=== PATIENT | male | born 1950 | race Caucasian/White ===

== ENCOUNTER → 2019-11-24 19:18 | Outpatient (ROUT) | payer MEDICARE, OTHER, SELFPAY ==
[2019-11-24 19:39] LABS: Add Manual Diff / Slide Review NO; Basophils Absolute Auto 0 /uL (0-100); Basophils Percent Auto 0.6 % (0-2); Eosinophils Absolute Auto 300 /uL (0-450); Eosinophils Percent Auto 5.4 % (2-4); Hematocrit 43.7 % (41-53); Hemoglobin 14.5 g/dL (13.5-17.5); Lymphocytes Absolute Auto 1100 /uL (1100-4500); Lymphocytes Percent Auto 19.2 % (25-40); Mean Corpuscular HGB Conc 33.2 % (30-36); Mean Corpuscular Hemoglobin 29.6 PG (26-34); Mean Corpuscular Volume 89.2 fL (80-100); Monocytes Absolute Auto 600 /uL (0-900); Monocytes Percent Auto 10.9 % (3-14); Neutrophils Absolute Auto 3700 /uL (1500-7000); Neutrophils Percent Auto 63.9 % (50-75); Platelet Count 173 X10^3/uL (150-400); Red Cell Distribution Width 13.9 % (11.6-14.8); White Blood Cell Count 5.7 X10^3/uL (4.5-11.0)
[2019-11-24 19:46] LABS: HEMOLYSIS 20 (0-50)
[2019-11-24 19:52] LABS: Alanine Aminotransferase 25 IU/L (<50); Albumin Globulin Ratio 1.5 (1.0-2.8); Alkaline Phosphatase 74 U/L (38-126); Aspartate Aminotransferase 32 IU/L (17-59); BUN Creatinine Ratio 17.3 (6-22); Bilirubin Total 0.6 mg/dL (0.2-1.3); Blood Urea Nitrogen 18 mg/dL (9-20); Calcium 9.6 mg/dL (8.4-10.2); Carbon Dioxide 25 mmol/L (22-32); Chloride 104 mmol/L (98-107); Cholesterol 204 mg/dL (140-199); Estimated Glomerular Filt Rate > 60.0 mL/min (>60); Globulin 2.7 g/dL (1.7-4.1); Glucose 102 mg/dL (80-110); HDL Cholesterol 36 mg/dL (40-60); LDL Cholesterol Calculated 131 mg/dL (<100); Sodium 138 mmol/L (137-145); Total Protein 6.7 g/dL (6.3-8.2); Triglycerides 187 mg/dL (35-150)
[2019-11-24 20:20] LABS: TSH w/ Reflex to FT4 2.04 uIU/mL (0.47-4.68)
== END ==
PROVIDERS: Family Provider Physician Assistant; PCP Physician Assistant; Visit Provider Internal Medicine
DX: Z85.46 Personal history of malignant neoplasm of prostate (principal); E78.2 Mixed hyperlipidemia; R53.83 Other fatigue
CPT/HCPCS: 80053; 80061; 84153; 84443; 85025

== ENCOUNTER → 2019-11-26 12:49 | Outpatient (CLI) | payer MEDICARE, OTHER, SELFPAY ==
--- NOTE | 2019-11-26 12:51 | DI.US.S_ITS ---
PROCEDURE: US ABD AORTA ANEURYSM SCREEN INDICATIONS: Abdominal Aortic aneurysm TECHNIQUE: Real time scanning was performed of the aorta and iliac arteries, with image documentation. COMPARISON: [facility], , RENAL OR RETROPERITONEAL LIMIT, 02/18/2016, 11:26. FINDINGS: Aorta: Proximal aorta is not seen. Mid-aorta measures 2.8 cm. Distal aortic diameter is 2.8 cm. Mural thrombus is seen within the mid and distal aorta. Iliac arteries: Right common iliac artery measures 1.5 cm. Left common iliac artery measures 1.5 cm. This study is limited by body habitus. Study is further limited by bowel gas. IMPRESSION: On these limited images, no abdominal aortic aneurysm is seen. It is noted that on the prior examination, a 3.5 cm aneurysm was seen involving the proximal aorta. This area is not seen on the current study, secondary to body habitus and overlying bowel gas. Dictated by: Samuel Pearl M.D. on 11/26/2019 at 14:27 Approved by: Samuel Pearl M.D. on 11/26/2019 at 14:28
== END ==
PROVIDERS: Family Provider Physician Assistant; PCP Physician Assistant; Referring Provider Internal Medicine; Visit Provider Internal Medicine
DX: I71.4 Abdominal aortic aneurysm, without rupture (principal)
CPT/HCPCS: 76706

== ENCOUNTER → 2019-12-22 09:42 | Outpatient (CLI) | payer MEDICARE, OTHER, SELFPAY ==
--- NOTE | 2019-12-22 09:53 | DI.CT.S_ITS ---
PROCEDURE: CT KIDNEY URETER BLADDER (KUB) INDICATIONS: Abdominal aortic aneurysm, without rupture TECHNIQUE: Noncontrast 5 mm thick sections acquired from the diaphragms to the symphysis. 5 mm thick coronal and sagittal reformats were then performed. For radiation dose reduction, the following was used: automated exposure control, adjustment of mA and/or kV according to patient size. COMPARISON: [facility], , US ABD AORTA ANEURYSM SCREEN, 11/26/2019, 13:10. [facility], , RENAL OR RETROPERITONEAL LIMIT, 02/18/2016, 11:26. FINDINGS: Image quality: Excellent. Lung bases: Lung bases are clear. No pleural effusion. Heart size is normal. Coronary artery calcifications. Gastric band. Urinary system: Both kidneys are within normal limits in size. Polycystic kidneys. Small hyperdense cyst in both kidneys. Left kidney superior pole rim calcified cyst. Left kidney is superior pole cortical thinning. Right kidney peripelvic cyst. No kidney stones. No hydronephrosis or perinephric fat stranding. Both ureters appear non-dilated throughout their expected courses. Bladder is unremarkable; no calcified bladder stones. Other solid organs: Liver is normal in size. A few well circumscribed hepatic hypodensities which consistent with benign cysts or hemangiomas. Gallbladder is unremarkable. Pancreas is normal in contours. Spleen is normal in size. No adrenal nodules. Peritoneum and bowel: Unenhanced bowel loops demonstrate normal wall thickness and caliber. Diverticulosis. No free fluid or air. Nodes and vessels: No retroperitoneal or mesenteric adenopathy by size criteria. Descending thoracic aorta measures 3.2 cm, (5/57). Proximal abdominal aorta measures 3.2 cm, (5/52). Mid abdominal aorta measures 2.5 cm. Distal abdominal aorta measures 2.3 cm. No iliac artery aneurysm. Abdominal wall: Small fat containing periumbilical hernia. Pelvis: No free pelvic fluid. No inguinal hernias or adenopathy. Prostate brachytherapy seeds. Bones: No suspicious bony lesions. Right hip total arthroplasty. No vertebral body compression fractures. IMPRESSION: 1. The descending thoracic aorta and proximal abdominal aorta measure 3.2 cm and are mildly aneurysmal. 2. Polycystic kidneys. Mildly complex left renal cyst. Scarring at the superior pole the left kidney. -recommend correlation with renal function. -recommend follow-up renal ultrasound or follow-up CT/MRI for mildly complex renal cyst. Additional findings: Gastric band. Prostate brachytherapy seeds. Right hip arthroplasty. Dictated by: Jorge Jacobo M.D. on 12/22/2019 at 10:04 Approved by: Jorge Jacobo M.D. on 12/22/2019 at 10:29
== END ==
PROVIDERS: Family Provider Physician Assistant; PCP Internal Medicine; Referring Provider Internal Medicine; Visit Provider Internal Medicine
DX: I71.4 Abdominal aortic aneurysm, without rupture (principal); N28.1 Cyst of kidney, acquired; G47.33 Obstructive sleep apnea (adult) (pediatric)
CPT/HCPCS: 74176; 99213; Q9967

== ENCOUNTER → 2019-12-25 15:30 | Outpatient (CLI) | payer MEDICARE, OTHER, SELFPAY ==
--- NOTE | 2019-12-25 | DI.US.S_ITS ---
PROCEDURE: US RENAL COMPLETE INDICATIONS: POLICYSTIC KIDNEY UNSPECIFIED TECHNIQUE: Real-time scanning was performed of the kidneys and bladder, with image documentation. COMPARISON: [facility], US, RENAL OR RETROPERITONEAL LIMIT, 02/18/2016, 11:26. [facility], CT, CT KIDNEY URETER BLADDER (KUB), 12/22/2019, 9:47. FINDINGS: Kidneys: Kidneys are normal in size. Right kidney measures from 12.5 cm long; left kidney measures 11.4 cm long. Right renal cortical thickness is 2.2 cm; left renal cortical thickness is 2.1 cm. Renal cortical echotexture is normal. No hydronephrosis or nephrolithiasis. No suspicious solid mass lesions. Bilateral renal cyst redemonstrated largest of which on the right measures up to 5.8 cm and 5.7 cm on the left. Bladder: Pre-void bladder volume is 189 mL. Post-void residual is 51 mL. Pre-void images demonstrate no intraluminal masses or stones. On pre-void images, neither ureteral jets are noted with color Doppler interrogation. (Of note, ureteral jets may not be detectable in up to 25% of cases due to insufficient differences in specific gravity between ureteral and bladder urine). Miscellaneous: No free pelvic fluid. IMPRESSION: Bilateral renal cyst which appears similar to prior CT scan. Dictated by: Goran MINOR Interpreted: Jonny Garcia MD on 12/25/2019 at 16:29 Approved by: Jonny Garcia M.D. on 12/25/2019 at 16:34
== END ==
PROVIDERS: Family Provider Physician Assistant; PCP Internal Medicine; Referring Provider Internal Medicine; Visit Provider Internal Medicine
DX: Q61.3 Polycystic kidney, unspecified (principal)
CPT/HCPCS: 76770

== ENCOUNTER → 2020-12-29 10:01 | Outpatient (CLI) | payer MEDICARE, OTHER, SELFPAY ==
--- NOTE | 2020-12-29 10:05 | DI.CT.S_ITS ---
PROCEDURE: CT ABDOMEN PELVIS W CON INDICATIONS: AAA WITHOUT RUPTURE TECHNIQUE: After the administration of oral and IV contrast, axial sections were acquired from the lung bases to the pubic symphysis. Coronal and sagittal reformats were performed. For radiation dose reduction, the following was used: automated exposure control, adjustment of mA and/or kV according to patient size. COMPARISON: December 22, 2019. FINDINGS: Image quality: Excellent. Lung bases: Unremarkable. Heart: No significant findings. ABDOMEN: Liver: Decreased attenuation liver, compatible hepatic steatosis. Scattered hypoattenuating lesions are seen, measuring up to 1.3 cm, which may reflect cysts. Gallbladder: Unremarkable. Biliary ducts: Unremarkable. Pancreas: Unremarkable. Spleen: Unremarkable. Adrenal Glands: Unremarkable. Kidneys and Ureters: Symmetric enhancement without evidence of obstructive uropathy. Bilateral cortical hypo and isoattenuating lesions are seen, most consistent with cysts. Stomach and Bowel: Small hiatal hernia with lap band in situ. No intestinal obstruction. Sigmoid diverticulosis. The appendix is not clearly identified. Peritoneum: No abnormal intraperitoneal fluid. No free air. Ventral Wall: Small fat containing periumbilical hernia. Abdominal Nodes: No retroperitoneal or mesenteric adenopathy by size criteria. Vessels: Aorta and inferior vena cava are normal in size. PELVIS: Pelvic Organs: Brachy therapy seeds are seen in the prostate. Bladder: Unremarkable. Pelvic Nodes: No enlarged lymph nodes. Miscellaneous: Small fat containing left inguinal hernia. Fatty atrophy of the right gluteus medius. Bones: No acute abnormality. Moderate disc height loss at L5-S1 with calcification of the disc. A right hip arthroplasty is partially imaged. IMPRESSION: 1. No acute intra-abdominal/pelvic abnormality. 2. Polycystic kidneys, some demonstrating greater attenuation values than simple fluid and most consistent with Bosniak [address] F lesions. Consider annual CT or MR follow-up for 5 years to ensure stability. Dictated by: Jer Salinas M.D. on 12/29/2020 at 11:39 Approved by: Jer Salinas M.D. on 12/29/2020 at 12:06
[2020-12-29 10:36] LABS: BUN Creatinine Ratio 16.7 (6-22); Blood Urea Nitrogen 17 mg/dL (9-20); Calcium 9.7 mg/dL (8.4-10.2); Carbon Dioxide 25 mmol/L (22-32); Chloride 106 mmol/L (98-107); Estimated Glomerular Filt Rate > 60.0 mL/min (>60); Glucose 104 mg/dL (80-110); HEMOLYSIS < 15 (0-50); Potassium 4.1 mmol/L (3.4-5.1); Sodium 139 mmol/L (137-145)
== END ==
PROVIDERS: Family Provider Physician Assistant; PCP Internal Medicine; Referring Provider Internal Medicine; Visit Provider Internal Medicine
DX: I71.4 Abdominal aortic aneurysm, without rupture (principal); N28.1 Cyst of kidney, acquired; K44.9 Diaphragmatic hernia without obstruction or gangrene; K40.90 Unilateral inguinal hernia, without obstruction or gangrene, not specified as recurrent; Z98.84 Bariatric surgery status
CPT/HCPCS: 36415; 74177; 80048; Q9967

== ENCOUNTER → 2021-04-20 14:31 | Outpatient (CLI) | payer MEDICARE, OTHER, SELFPAY ==
--- NOTE | 2021-04-20 | DI.ECHO.S_ITS ---
[facility] +[facility]+ : : [address] : [place] : : : : [id number] : : : : Phone: [phone]+ Echocardiogram Report + + :Name: NICANOR RANGEL Study Date: 04/20/2021 Height: 75 in : :[facility] ReadingLocation: Weight: 325 lb : : Gender: Male BSA: 2.7 m2 : :: 1950 Age: 70 yrs BP: 155/100 mmHg: :Reason For Study: EDEMA : :Ordering Physician: IJEOMA, : :JEFFERY Performed By: Carol Zee : :Referring: JEFFERY RAPHAEL : + + Interpretation Summary 1) Normal left ventricular size, wall motion, and systolic function (EF 55- 60%). 2) Normal right ventricular size and function. 3) There is mild to moderate very eccentric mitral regurgitation. 4) The aortic root is moderately dilated at 4.5cm. 5) The ascending aorta is moderate-severely enlarged at 4.7cm. 6) Hypertension present during the study (BP 155/100mmHg). 7) No prior Echo available for comparison. Recommend further optimization of BP control. Recommend repeat Echo in one year for serial monitoring (earlier if clinically indicated). Procedure: A two-dimensional transthoracic echocardiogram with color flow and Doppler was performed. The study quality was technically difficult. There is no prior echocardiogram noted for this patient. The patient was in sinus bradycardia with heart rates between 48-58 bpm during the exam. Left Ventricle: The left ventricle is normal in size. Left ventricular wall thickness is at the upper limits of normal. The ejection fraction is estimated to be 55-60%. Left ventricular systolic function appears normal without focal wall motion abnormalities. Diastolic parameters suggest a pseudonormalization pattern, consistent with probable elevated filling pressures. Right Ventricle: The right ventricle is normal in size and function. Atria: The left atrium is moderately dilated. Right atrial size is normal. There is no Doppler evidence for an interatrial shunt. Mitral Valve: The mitral valve is normal in structure and function. There is mild to moderate mitral regurgitation. The mitral regurgitant jet is eccentrically directed. Aortic Valve: The aortic valve is trileaflet. The aortic valve opens well. There is no aortic valve stenosis. There is trace aortic regurgitation. Tricuspid Valve: The tricuspid valve is normal in structure and function. There is trace tricuspid regurgitation. Pulmonary artery pressures cannot be estimated because of the lack of a measurable TR jet velocity but the IVC suggests a CVP of around 3 mmHg. Pulmonic Valve: The pulmonic valve is not well visualized. There is trace pulmonic regurgitation. Great Vessels: The aortic root is moderately dilated. The ascending aorta is moderate-severely enlarged. The IVC is of normal diameter and collapses greater than 50% with a sniff. This suggests a low right atrial pressure of 3 mm Hg. Pericardium/ Pleura There is no pericardial effusion. There is no pleural effusion. MMode/2D Measurements & Calculations LVIDd: 5.1 cm LVOT diam: 2.4 cm LVIDs: 3.3 cm Ao root diam: 4.5 cm FS: 36.0 % asc Aorta Diam: 4.7 cm IVSd: 1.1 cm Ao Arch Diam (Prox Trans): 3.9 cm LVPWd: 1.0 cm LV zaragoza. diameter/BSA (cm/m^2): 1.9 LV sys. diameter/BSA (cm/m^2): 1.2 LA A2 area: 28.2 cm2 RA long axis: 5.6 cm LA A4 area: 22.4 cm2 RA area: 15.2 cm2 LA length (vol): 5.6 cm RA vol: 35.3 ml LA vol: 95.4 ml RA : 13.1 ml/m2 LA vol index: 35.4 ml/m2 IVC diam: 1.1 cm RVD1 (basal): 3.7 cm TAPSE: 1.8 cm Doppler Measurements & Calculations Ao V2 max: 129.1 cm/sec LVOT Max Russell: 93.8 cm/sec Ao V2 mean: 83.2 cm/sec LV V1 max P.5 mmHg Ao max P.7 mmHg LV V1 VTI: 21.3 cm Ao mean P.3 mmHg TANG(I,D): 3.3 cm2 Ao V2 VTI: 28.8 cm TANG(V,D): 3.3 cm2 sev ratio: 0.74 TANG indexed to BSA (cm^2/m^2): 1.2 MV E max russell: 100.6 cm/sec PA V2 max: 89.8 cm/sec MV A max russell: 59.6 cm/sec PA V2 mean: 65.1 cm/sec MV E/A: 1.7 PA mean P.8 mmHg Med Peak E' Russell: 5.9 cm/sec PA pr(Accel): 31.0 mmHg E/E' med: 17.2 Lat Peak E' Russell: 9.9 cm/sec E/E' lat: 10.2 E/e' average: 13.7 MV dec time: 0.25 sec SV(LVOT): 95.5 ml Reading Physician:04:31 PM
== END ==
PROVIDERS: Family Provider Physician Assistant; PCP Student in an Organized Health Care Education/Training Program; Referring Provider Student in an Organized Health Care Education/Training Program; Visit Provider Student in an Organized Health Care Education/Training Program
DX: I34.0 Nonrheumatic mitral (valve) insufficiency (principal); R60.9 Edema, unspecified; I77.810 Thoracic aortic ectasia; I77.89 Other specified disorders of arteries and arterioles
CPT/HCPCS: 93306

== ENCOUNTER → 2021-08-24 09:47 | Outpatient (CLI) | payer MEDICARE, OTHER, SELFPAY ==
--- NOTE | 2021-08-24 09:56 | DI.CT.S_ITS ---
PROCEDURE: CT ANGIO CHEST INDICATIONS: Thoracic aortic aneurysm, without rupture TECHNIQUE: After the administration of intravenous contrast, 2.5 mm thick sections acquired from the lung apices to the posterior lung bases. Maximum intensity projection (MIP) oblique sagittal reformats were then acquired parallel to the aortic arch. For radiation dose reduction, the following was used: automated exposure control. COMPARISON: None. FINDINGS: Image quality: Excellent. Aorta and its attachments: There is aneurysmal dilatation of the ascending aorta, which measures 4.8 cm in diameter. The transverse arch is normal in caliber. The proximal descending thoracic aorta is mildly aneurysmally dilated, measuring 3.7 cm. More inferiorly, the descending thoracic aorta is of normal caliber. Classic three-vessel arch anatomy. Great vessel origins are widely patent. Celiac, SMA, and bilateral renal arteries are patent. Mediastinum: No hematomas. Heart size is normal. No pericardial effusion. Moderately severe coronary artery calcifications. No mediastinal or hilar adenopathy by size criteria. Central pulmonary arteries are normal in size. Esophagus is normal in caliber. No hiatal hernia. Lungs and pleura: No acute airspace opacities. No pleural effusions or pneumothorax. Central and peripheral airways are patent and normal in caliber. Bones and chest wall: No axillary adenopathy by size criteria. Thyroid gland is unremarkable as visualized . No suspicious bony lesions. No vertebral body compression fractures. Abdomen: Question exophytic mass off the posterior aspect of the middle pole of the left kidney measuring 2.7 x 2.5 cm. It is subjacent to an exophytic cyst. Cannot exclude renal cell carcinoma. Numerous other bilateral renal cysts are present. This includes a hyperdense cyst or small mass off of the upper pole of the right kidney measuring 1.5 cm. Laparoscopic band noted. IMPRESSION: 1. Aneurysmal dilatation of the ascending aorta, measuring 4.8 cm in diameter. Mild aneurysmal dilatation of the proximal descending thoracic aorta. 2. Moderately severe coronary artery calcifications. 3. Question 2.7 cm maximum diameter exophytic left renal mass. Question 1.5 cm right renal mass. Comment: Recommend further evaluation of the kidneys utilizing multiphase renal protocol CT versus MRI to exclude solid renal masses. Dictated by: Ruslan Perry M.D. on 08/24/2021 at 16:18 Approved by: Ruslan Perry M.D. on 08/24/2021 at 16:53
[2021-08-24 10:32] LABS: BUN Creatinine Ratio 15.5 (6-22); Blood Urea Nitrogen 17 mg/dL (9-20); Calcium 9.7 mg/dL (8.4-10.2); Carbon Dioxide 26 mmol/L (22-32); Chloride 106 mmol/L (98-107); Estimated Glomerular Filt Rate > 60 mL/min (>60); Glucose 130 mg/dL (80-110); HEMOLYSIS < 15 (0-50); Potassium 3.7 mmol/L (3.4-5.1); Sodium 139 mmol/L (137-145)
== END ==
PROVIDERS: Family Provider Physician Assistant; PCP Student in an Organized Health Care Education/Training Program; Referring Provider Internal Medicine Cardiovascular Disease; Visit Provider Internal Medicine Cardiovascular Disease
DX: I71.2 Thoracic aortic aneurysm, without rupture (principal); I25.10 Atherosclerotic heart disease of native coronary artery without angina pectoris; N28.89 Other specified disorders of kidney and ureter
CPT/HCPCS: 36415; 71275; 80048; Q9967

== ENCOUNTER → 2022-03-15 10:12 | Outpatient (CLI) | payer MEDICARE, OTHER, SELFPAY ==
--- NOTE | 2022-03-15 10:15 | DI.CT.S_ITS ---
PROCEDURE: CT ANGIO CHEST INDICATIONS: Aneurysm of the ascending aorta, without rupture TECHNIQUE: After the administration of intravenous contrast, 2.5 mm thick sections acquired from the lung apices to the posterior lung bases. Maximum intensity projection (MIP) oblique sagittal reformats were then acquired parallel to the aortic arch. For radiation dose reduction, the following was used: automated exposure control. COMPARISON: [facility], MR, MR ABDOMEN WITH/WITHOUT CONTRAST, 11/10/2021, 9:49. [facility], CT, CT ANGIO CHEST, 08/24/2021, 11:05. FINDINGS: Image quality: Excellent. Aorta: There is ectasia of the ascending thoracic aorta which measures 4.6 cm in diameter. This measured 4.8 cm in diameter on the comparison CT dated August 24, 2021. The thoracic arch and descending thoracic aorta demonstrate normal course and caliber. Visualized portions of the abdominal aorta demonstrate normal course and caliber. The celiac axis, SMA, and bilateral E renal arteries are widely patent. No intramural hematoma is or wall thickening. Mediastinum: No hematomas. Heart size is normal. No pericardial effusion. No mediastinal or hilar adenopathy by size criteria. Central pulmonary arteries are normal in size. Esophagus is normal in caliber. There is a small hiatal hernia and lap band present. Lungs and pleura: No acute airspace opacities. No pleural effusions or pneumothorax. Central and peripheral airways are patent and normal in caliber. Bones and chest wall: No axillary adenopathy by size criteria. There is a low-density nodule within the left thyroid lobe likely unchanged from the prior study. No suspicious bony lesions. No vertebral body compression fractures. Abdomen: Multiple exophytic lesions are redemonstrated throughout the bilateral kidneys. These were characterized on the comparison MRI dated November 10, 2021Visualized upper abdominal solid organs and bowel loops appear otherwise normal. IMPRESSION: 1. Stable ectasia of the ascending thoracic aorta. Annual surveillance recommended. This can likely be accomplished by echocardiography. 2. Multiple exophytic renal cystic lesions which were recently characterized on the comparison MRI dated November 10, 2021. Dictated by: Fidelia Middletno M.D. on 03/15/2022 at 11:34 Approved by: Fidelia Middleton M.D. on 03/15/2022 at 11:42
[2022-03-15 11:03] LABS: Estimated Glomerular Filt Rate > 60 mL/min (>60)
== END ==
PROVIDERS: Radiology Diagnostic Radiology; Family Provider Physician Assistant; PCP Student in an Organized Health Care Education/Training Program; Referring Provider Nurse Practitioner Family; Visit Provider Nurse Practitioner Family
DX: I77.810 Thoracic aortic ectasia (principal); N28.89 Other specified disorders of kidney and ureter
CPT/HCPCS: 36415; 71275; 82565; Q9967

== ENCOUNTER 2022-10-29 15:13 | Emergency (ER) | payer MEDICARE, OTHER, SELFPAY ==
[2022-10-29 15:20] VITALS: BP 139/95; PULSE 82; RESP 16; TEMP 36.9; O2SAT 95; BMI 41.2
--- NOTE | 2022-10-29 15:55 | PC.NURSE ---
History or prostate cancer.
--- NOTE | 2022-10-29 15:59 | ED_ITS ---
HPI - Male Genitourinary <Amee Soto PA-C - Last Filed: 10/29/22 17:59> General Chief complaint: Urogenital-Male Stated complaint: Blood in urine Time Seen by Provider: 10/29/22 15:35 Source: patient Mode of arrival: Ambulatory History of Present Illness HPI Narrative: Patient is a 72-year-old male who presents with concern for blood in his urine since this morning. He reports waking up and having normal urination, drinking a cup of coffee and then returning to the bathroom where he noticed his urine was pink tinged. This has progressively gotten darker throughout the day. It is not painful to urinate and he is not having any difficulty initiating his stream. He has not had any recent trauma or injury. He reports a history of prostate cancer for which she received radiation, his follow-up PSAs have been undetectable until this year when it was 0.4. This has never happened to him before. He is never had any problems with his kidneys or a kidney stone. He has no abdominal pain, or flank pain. He denies fever. He does reports an episode 4 days ago where he had acute onset of stomach pain, and cramping and felt like he needed to either vomit or have diarrhea, but neither occurred. He fell asleep, awoke several hours later and the pain was gone. He is had normal bowel movements have been able to tolerate food since then. He takes Xarelto, which is prescribed by his psychosocial rehabilitation counselor, but he does not know the reason that he is taking it. He is also taking Ozempic for weight loss, since June. Related Data Home Medications Medication Instructions Recorded Confirmed lisinopril 20 1 tab PO DAILY 12/12/17 01/17/22 mg-hydrochlorothiazide 25 mg tablet Resmed Airsense 10 CPAP #1 ea 12/10/18 01/17/22 aspirin 81 mg tablet,delayed 81 mg PO DAILY 12/10/18 01/17/22 release (Adult Low Dose Aspirin) losartan 50 mg-hydrochlorothiazide 1 tab PO DAILY 12/17/20 01/17/22 12.5 mg tablet rosuvastatin 10 mg tablet 10 mg PO DAILY 12/17/20 01/17/22 Previous Rx's Medication Instructions Recorded levofloxacin 250 mg tablet 250 mg PO DAILY #4 tabs 10/29/22 Allergies Allergy/AdvReac Type Severity Reaction Status Date / Time No Known Drug Allergies Allergy Unverified 01/17/22 11:44 Review of Systems <Amee Soto PA-C - Last Filed: 10/29/22 17:59> Review of Systems ROS Unobtainable: All systems reviewed & are unremarkable except as noted in HPI and below Patient History <Amee Soto PA-C - Last Filed: 10/29/22 17:59> Medical History Allergic rhinitis Depression Hearing deficit Hypertension Obesity (BMI 30-39.9) Obstructive sleep apnea of adult Prostate cancer Surgical History History of right hip replacement (~2015) Hx of laparoscopic gastric banding (~2014) Social History Smoking Status: Never smoker Smoking Status: Never smoker Exam <Amee Soto PA-C - Last Filed: 10/29/22 17:59> Narrative Exam Narrative: GENERAL: 72 year old patient appears stated age. Well-developed patient, in no distress. NEURO: AOx3. HEAD: Atraumatic. Normocephalic. RESPIRATORY: No distress GASTROINTESTINAL: Abdomen soft, non-tender, nondistended. No suprapubic tenderness or CVA tenderness. EXTREMITIES: No edema or joint tenderness. SKIN: No rash or erythema of visible areas Initial Vital Signs Initial Vital Signs: Vital Signs Temperature 98.4 F 10/29/22 15:20 Pulse Rate 82 10/29/22 15:20 Respiratory Rate 16 10/29/22 15:20 Blood Pressure 139/95 H 10/29/22 15:20 Pulse Oximetry 95 10/29/22 15:20 Oxygen Delivery Method Room Air 10/29/22 15:20 <Bibi Quinn DO - Last Filed: 10/30/22 08:19> Initial Vital Signs Initial Vital Signs: Vital Signs Temperature 98.4 F 10/29/22 15:20 Pulse Rate 82 10/29/22 15:20 Respiratory Rate 16 10/29/22 15:20 Blood Pressure 139/95 H 10/29/22 15:20 Pulse Oximetry 95 10/29/22 15:20 Oxygen Delivery Method Room Air 10/29/22 15:20 Course <Amee Soto PA-C - Last Filed: 10/29/22 17:59> Orders Ordered: Discontinued Medications Ciprofloxacin (Ciprofloxacin 250 Mg Tablet) 500 mg PO NOW ONE Stop: 10/29/22 17:14 Last Admin: 10/29/22 17:18 Dose: 500 mg Documented By: SB Vital Signs Vital signs: Vital Signs - 8 hr 10/29/22 15:20 10/29/22 16:43 10/29/22 17:23 Temperature 98.4 F Pulse Rate 82 55 L 58 L Respiratory Rate 16 Blood Pressure 139/95 H 137/84 Pulse Oximetry 95 96 Oxygen Delivery Method Room Air Room Air <Bibi Quinn DO - Last Filed: 10/30/22 08:19> Orders Ordered: Discontinued Medications Ciprofloxacin (Ciprofloxacin 250 Mg Tablet) 500 mg PO NOW ONE Stop: 10/29/22 17:14 Last Admin: 10/29/22 17:18 Dose: 500 mg Documented By: SB Vital Signs Vital signs: Vital Signs - 8 hr 10/29/22 15:20 10/29/22 16:43 10/29/22 17:23 Temperature 98.4 F Pulse Rate 82 55 L 58 L Respiratory Rate 16 Blood Pressure 139/95 H 137/84 Pulse Oximetry 95 96 Oxygen Delivery Method Room Air Room Air MDM - Male Genitourinary <Amee Soto PA-C - Last Filed: 10/29/22 17:59> Lab Data Labs: Lab Results 10/29/22 Range/Units 15:32 Urine Color Red Urine Appearance Cloudy Urine pH 6.5 (4.5-8.0) Ur Specific [place] >=1.030 H (1.000-1.035) Urine Protein 3+ H (Negative) Urine Glucose (UA) Negative (Negative) g/dL Urine Ketones Negative (NEGATIVE) Urine Occult Blood 3+ H (Negative) Urine Nitrate Negative (Negative) Urine Bilirubin 1+ H (NEGATIVE) Ur Bilirubin Confirm Negative (Negative) Urine Urobilinogen 1.0 (0.2) E.U./dL Ur Leukocyte Esterase Negative (NEGATIVE) Urine RBC >100/hpf H (0-5/HPF) Urine WBC 5-10/hpf H (0-5/HPF) Ur Squamous Epith Cells 0-1 /hpf (0-5/HPF) Urine Bacteria Few (2-10) H (None) Ur Culture Indicated? Specimen cultured MDM Narrative Medical decision making narrative: Multiple etiologies for patient's symptoms considered including, but not limited to: UTI, kidney stone, pyelonephritis, glomerular disease, neoplasm. UA with significant blood, negative leuk esterase or nitrites but positive WBCs and few bacteria. Given no pain and no history of kidney disease, suspect complicated UTI in male. No evidence of upper tract infection. We will treat with fluoroquinolone per up-to-date; patient's insurance does not cover Cipro so will change to levofloxacin. Patient advised to follow up with primary care for recheck of urine to assure resolution of hematuria given somewhat unusual presentation as he has no pain, no dysuria, no fever, or other feelings of illness. Patient reported to me that he is going to talk to his weight loss doctor about discontinuing Ozempic given his recent gastrointestinal symptoms, which he is concerned are side effects of Ozempic, but which are not concerning him today. Patient's symptoms improved over duration of stay with above-stated therapies. Findings and discharge diagnosis discussed with patient/family followed by verbalization of understanding Return precautions discussed with patient/family whom verbalize understanding of diagnosis and plan <Bibi Quinn, DO - Last Filed: 10/30/22 08:19> Lab Data Labs: Lab Results 10/29/22 Range/Units 15:32 Urine Color Red Urine Appearance Cloudy Urine pH 6.5 (4.5-8.0) Ur Specific [place] >=1.030 H (1.000-1.035) Urine Protein 3+ H (Negative) Urine Glucose (UA) Negative (Negative) g/dL Urine Ketones Negative (NEGATIVE) Urine Occult Blood 3+ H (Negative) Urine Nitrate Negative (Negative) Urine Bilirubin 1+ H (NEGATIVE) Ur Bilirubin Confirm Negative (Negative) Urine Urobilinogen 1.0 (0.2) E.U./dL Ur Leukocyte Esterase Negative (NEGATIVE) Urine RBC >100/hpf H (0-5/HPF) Urine WBC 5-10/hpf H (0-5/HPF) Ur Squamous Epith Cells 0-1 /hpf (0-5/HPF) Urine Bacteria Few (2-10) H (None) Ur Culture Indicated? Specimen cultured Discharge Plan Departure Patient Disposition: Home Clinical Impression: Urinary tract infection, Hematuria Instructions: DI for Urinary Tract Infection (UTI) Activity Restrictions/Additional Instructions: *You have been diagnosed with urinary tract infection. I have prescribed a course of antibiotics for this. I would recommend following up with your primary care in 2-3 weeks for a recheck of your urine to make sure that there is no longer any blood in it. If there continues to be any blood, you should have further evaluation. Make sure you drink plenty of water incomplete the entire course of antibiotics. *What to do: *Please continue to take your regular medications as directed. [ x] New medication prescriptions sent to your pharmacy: [[facility] [place]] [ ] New medication written as a paper prescription [ ] No new medications given *Please follow up with your primary care provider in 2-3 days, call for an appointment. Let them know you were seen in the Emergency Department and that we ask that you be seen in follow up. We will electronically transmit a record of today's note if your PCP is in our system *If you do not have a primary care provider please contact the [facility] Resource line at [phone]. They will ask some questions about your medical history and help get you set up with a doctor in the community. *Return to Emergency Department if you should have any new, worsening or concerning symptoms, such as [fever greater than 101 F, shaking chills, worsening pain, persistent vomiting or other bothersome symptoms] Prescriptions: New levofloxacin 250 mg tablet 250 mg PO DAILY Qty: 4 0RF No Action lisinopril-hydrochlorothiazide 20-25 mg tablet 1 tab PO DAILY rosuvastatin 10 mg tablet 10 mg PO DAILY losartan-hydrochlorothiazide 50-12.5 mg tablet 1 tab PO DAILY (DME) Resmed Airsense 10 CPAP Qty: 1 Dose Instruction: As directed Patient Comments: Pressure: 6-10 cmH2O DME: [facility] Rx Instructions: As directed aspirin [Adult Low Dose Aspirin] 81 mg tablet,delayed release (DR/EC) 81 mg PO DAILY Referrals: Elizabeth Garcia PA-C [Primary Care Provider] - Stand Alone Forms: Patient Portal/API <Bibi Quinn DO - Last Filed: 10/30/22 08:19> Cosign ED Attending Cosignature Attestation: I was immediately available in the department for consultation. Documentation has been reviewed.
[2022-10-29 16:02] LABS: Appearance Urine UA CLOUDY; Bilirubin Urine UA 1+ (NEGATIVE); Color Urine UA RED; Glucose Urine UA NEGATIVE (Negative); Ketones Urine UA NEGATIVE (NEGATIVE); Leukocyte Esterase Urine UA NEGATIVE (NEGATIVE); Nitrite Urine UA NEGATIVE (Negative); Occult Blood Urine UA 3+ (Negative); Protein Urine UA 3+ (Negative); Specific Gravity Urine UA >=1.030 (1.000-1.035); pH Urine UA 6.5 (4.5-8.0)
[2022-10-29 16:07] LABS: Ictotest Urine Negative (Negative)
[2022-10-29 16:21] LABS: Bacteria Urine Few (2-10); Culture Indicated Urine Specimen Cultured; RBC Urine >100/HPF (0-5/HPF); Squamous Epithelial Cell Urine 0-1 /HPF (0-5/HPF); WBC Urine 5-10/HPF (0-5/HPF)
[2022-10-29 16:43] VITALS: BP 137/84; PULSE 55; O2SAT 96
[2022-10-29] MEDS: CIPROFLOXACIN 250 MG TABLET 500 MG PO (17:18)
[2022-10-29 17:23] VITALS: PULSE 58
== END 2022-10-29 17:24 | disposition home or self-care (01) ==
PROVIDERS: Emergency Provider Physician Assistant; Family Provider Physician Assistant; PCP Student in an Organized Health Care Education/Training Program
DX: N39.0 Urinary tract infection, site not specified (principal); R31.9 Hematuria, unspecified
CPT/HCPCS: 81001; 87086; 99283

== ENCOUNTER → 2023-03-27 18:36 | Outpatient (CLI) | payer MEDICARE, OTHER, SELFPAY ==
--- NOTE | 2023-03-27 | DI.MRI.S_ITS ---
PROCEDURE: MR THORACIC SPINE WO/W CON INDICATIONS: prostate ca TECHNIQUE: Noncontrast sagittal T1 spin echo and T2 fast spin echo, sagittal STIR, post-Gadolinium axial T1 spin echo with fat saturation through the thoracic and lumbar spines, with additional T2 fast spin echo and post-contrast axial T1 spin echo with fat saturation sequences acquired through levels of suspected cord compression. COMPARISON: None. FINDINGS: Image quality: Excellent. Bones: Heterogeneously enhancing lesion involving the T7 vertebral body measuring 1.7 x 2.2 x 1.8 cm (TV by AP by cc). There is an additional heterogeneous enhancing foci within the T9 vertebral body measuring 1.5 x 1.4 x 1.2 cm (TV by AP by cc). No other suspicious lesions are seen within the thoracic spine. Neither of these lesions demonstrate epidural extension. Spinal cord: Visualized spinal cord is normal in size and signal. Conus medullaris is normal in location. No enhancing epidural mass lesions. Mild degenerative disc disease without central canal or neural foraminal stenosis. Paraspinous soft tissues: No paravertebral masses. Subcutaneous T2 hyperintense nodule anterior to the thyroid (6/6). IMPRESSION: 1. Heterogeneous lesions within the T7 and T9 vertebral bodies concerning for metastatic disease. No epidural extension. 2. Subcutaneous T2 hyperintense nodule anterior to the thyroid, not well evaluated on this exam and may represent a thyroglossal duct cyst. Further evaluation with ultrasound could be obtained as clinically indicated. Dictated by: Meet Guidry M.D. on 03/28/2023 at 10:16 Approved by: Meet Guidry M.D. on 03/28/2023 at 10:23
== END ==
LOC: MRI 18:39
PROVIDERS: Family Provider Physician Assistant; PCP Student in an Organized Health Care Education/Training Program; Referring Provider Internal Medicine Hematology & Oncology; Visit Provider Internal Medicine Hematology & Oncology
DX: C61 Malignant neoplasm of prostate (principal); M89.9 Disorder of bone, unspecified; E04.1 Nontoxic single thyroid nodule
CPT/HCPCS: 72157; A9579

== ENCOUNTER → 2023-05-01 13:16 | Outpatient (CLI) | payer MEDICARE, OTHER, SELFPAY ==
--- NOTE | 2023-05-01 13:20 | DI.CT.S_ITS ---
PROCEDURE: CT THORACIC SPINE WO CON INDICATIONS: PROSTATE CANCER TECHNIQUE: Noncontrast 3 mm thick sections acquired through the region of interest in the thoracic spine. Sagittal and coronal reformats were then constructed. For radiation dose reduction, the following was used: automated exposure control. COMPARISON: [facility], CT, CT IVP, 11/16/2022, 13:15. [facility], MR, MR THORACIC SPINE WO/W CON, 03/27/2023, 18:47. FINDINGS: Image quality: Excellent. Bones: On the prior recent MRI, there are lesion seen within the T7 and T9 vertebral bodies. The T7 lesion is a relatively well-defined hypodense lesion with vertical trabeculations. Similar findings are seen at T9, although less obvious. No sclerotic lesion can be seen in either the sites. No acute vertebral body compression fractures. Central spinal canal is of normal overall caliber. Mild dextroconvex scoliotic curvature is seen. Accentuated thoracic kyphosis is seen. Soft tissues: There is partial visualization of a likely cyst anterior to the thyroid, as on series 3, image 20, measuring 2.1 cm. No paravertebral masses or hematomas. Visualized posteromedial lungs appear clear. Moderate coronary artery calcification can be seen. A small hiatal hernia is incidentally noted. A lap band can be seen. Multiple cysts can be seen involving the kidneys, including several hyperdense cysts. IMPRESSION: The previously seen T7 lesion is attributed to a benign vertebral body hemangioma. The T9 vertebral body lesion is also likely related to a benign vertebral body hemangioma. No suspicious sclerotic lesions can be seen throughout the thoracic spine. Additional findings: Likely cyst anterior to the thyroid, 2.1 cm Moderate coronary artery calcification Small hiatal hernia Lap band Dictated by: Samuel Pearl M.D. on 05/01/2023 at 16:22 Approved by: Samuel Pearl M.D. on 05/01/2023 at 16:27
== END ==
PROVIDERS: Family Provider Physician Assistant; PCP Student in an Organized Health Care Education/Training Program; Referring Provider Radiology Radiation Oncology; Visit Provider Radiology Radiation Oncology
DX: C61 Malignant neoplasm of prostate (principal); D18.09 Hemangioma of other sites; M41.9 Scoliosis, unspecified; I25.10 Atherosclerotic heart disease of native coronary artery without angina pectoris; N28.1 Cyst of kidney, acquired; K44.9 Diaphragmatic hernia without obstruction or gangrene; Z98.84 Bariatric surgery status
CPT/HCPCS: 72128

== ENCOUNTER → 2023-08-24 09:44 | Outpatient (CLI) | payer MEDICARE, OTHER, SELFPAY ==
--- NOTE | 2023-08-24 09:59 | DI.NM.S_ITS ---
DATE OF SERVICE: 08/24/2023 NUCLEAR CARDIOLOGY MYOCARDIAL PERFUSION STUDY Procedure: Pharmacologic vasodilator stress and rest myocardial perfusion imaging with gating to assess ejection fraction and regional wall motion. Ordering Provider: Edmund Kay PA-C Indications: The patient is a 73-year-old male with known significant coronary artery calcification and paroxysmal atrial fibrillation with exertional dyspnea. Cardiac Stress: Per protocol, 0.4 mg of regadenoson was infused, augmented by low level walking on the treadmill. With this, he had a normal hemodynamic response and had no significant symptoms. His resting ECG shows sinus rhythm with occasional PACs and normal ST segments. With stress, there are no significant ST-segment shifts or arrhythmias, although P-waves become more difficult to discern. There continues to be frequent isolated PACs but no obvious sustained arrhythmias. Per protocol, 25.1 millicuries of technetium-99m Myoview was injected and he was imaged 15 minutes later using a gated SPECT acquisition protocol. Three days prior while at rest, he had been injected with 24.3 millicuries of technetium- 99m Myoview and was imaged 15 minutes later, again using a gated SPECT acquisition protocol. FINDINGS: 1. Raw data: There was fair myocardial tracer uptake with some evidence for attenuation artifact. The lung/heart ratio is at the upper limits of normal at 0.41 and the TID ratio is significantly elevated at 1.56, which can be a sign of global ischemia although is nonspecific with the use of vasodilator stress, especially when there is a significant time delay between stress and rest images. Clinical correlation is recommended. 2. Quantitated gated SPECT: Post-stress ejection fraction is estimated at 61% without any focal wall motion abnormality and specifically the inferior wall appears to have normal contractility. The resting ejection fraction is estimated at 65% with a mildly increased end-diastolic volume of 143 mL, likely due to the patient's large body habitus. 3. Myocardial perfusion imaging: Post-stress supine images show a fairly normal myocardial perfusion pattern although with a subtle defect in the inferior wall, more notable at the inferoapex but in a pattern consistent with diaphragmatic attenuation. The prone images show marked improvement in this defect although a very slight residual defect remains present in the distal inferior wall. The resting images show an identical perfusion pattern to that of the post-stress supine images without any areas of improvement. IMPRESSION: 1. Probable normal myocardial perfusion study but with reduced sensitivity because of marginal image quality. 2. There is a small, subtle, fixed distal inferoapical defect that persists slightly on the prone images, suggesting the possibility of a previous nontransmural infarction but given its location and absence of a wall motion abnormality, more likely reflects diaphragmatic attenuation artifact. There is no perfusion evidence for any myocardial ischemia. 3. Normal left ventricular systolic function without focal wall motion abnormality although with a significant TID ratio which can be a sign of global ischemia yet is nonspecific with the use of vasodilator, and especially when there is a delay between the stress and resting images. Clinical correlation is recommended. The lung/heart ratio is borderline elevated at 0.41. 4. No angina or ECG evidence of ischemia with pharmacologic vasodilator stress. He had frequent PACs, at times with poorly discernible P-waves, but no other arrhythmias. dd: 08/27/2023 17:00:00 dt DICTATING MD/COPIES TO: Derrek Ivan MD;
--- NOTE | 2023-08-31 10:40 | DI.NM.S_ITS ---
DATE OF SERVICE: 08/24/2023 NUCLEAR CARDIOLOGY MYOCARDIAL PERFUSION STUDY PROCEDURE: Pharmacologic vasodilator stress and rest myocardial perfusion imaging with gating to assess ejection fraction and regional wall motion. ORDERING PROVIDER: Edmund Kay PA-C INDICATIONS: The patient is a 73-year-old male with known significant coronary artery calcification and paroxysmal atrial fibrillation with exertional dyspnea. CARDIAC STRESS: Per protocol, 0.4 mg of regadenoson was infused, augmented by low level walking on the treadmill. With this, he had a normal hemodynamic response and had no significant symptoms. His resting ECG showed sinus rhythm with occasional PACs, but normal ST segments. With stress, there were no significant ST-segment shifts or arrhythmias, although P-waves became more difficult to discern. There continued to be frequent PACs, but no obvious sustained arrhythmias. Per protocol, 25.1 millicuries of technetium-99m Myoview was injected and he was imaged 15 minutes later using a gated SPECT acquisition protocol. Three days prior while at rest, he had been injected with 24.3 millicuries of technetium-99m Myoview and was imaged 15 minutes later, again using a gated SPECT acquisition protocol. FINDINGS: 1. Raw data: There was fair myocardial tracer uptake with some evidence for attenuation artifact. The lung/heart ratio is at the upper limits of normal at 0.41 and the TID ratio is significantly elevated at 1.56, which can be a sign of global ischemia, although is nonspecific with the use of vasodilator, specifically when there is a significant time delay between stress and rest images. Clinical correlation is recommended. 2. Quantitated gated SPECT: Post-stress ejection fraction is estimated at 61% without any focal wall motion abnormality and specifically the inferior wall appears to have normal contractility. The resting ejection fraction is estimated at 65% with a mildly increased end- diastolic volume of 143 mL, but likely due to the patient's large body habitus. 3. Myocardial perfusion imaging: Post-stress supine images show a fairly normal myocardial perfusion pattern, although with a subtle defect in the inferior wall, more notable at the infero apex, but likely in a pattern consistent with diaphragmatic attenuation. The prone images show marked improvement in this defect, although a very slight residual defect remains present in the distal inferior wall. The resting images show an identical perfusion pattern to that of the post- stress supine images without any areas of improvement. IMPRESSION: 1. Probable abnormal myocardial perfusion study, but with reduced specificity because of marginal image quality. 2. There is a small subtle fixed distal infero-apical defect that persists slightly on the prone images, suggesting the possibility of a previous nontransmural infarction but it could also represent diaphragmatic attenuation artifact. There is no evidence for any myocardial ischemia. 3. Normal left ventricular systolic function without focal wall motion abnormality, although with a significant TID ratio which can be a sign of global ischemia but is nonspecific with the use of vasodilator, and specifically when delay between the stress and resting images. Clinical correlation is recommended. The lung/heart ratio is borderline elevated at 0.41. 4. No angina or ECG evidence of ischemia with pharmacologic vasodilator stress. He had frequent PACs, at times with poorly discernible P-waves, but no other arrhythmias. JohannaCraig - SERINA/neri/MILAGROS doc#: [id number]/job#: [id number] dd: 08/27/2023 17:00:00 dt: 08/27/2023 18:39:00 DICTATING MD/COPIES TO: Derrek Ivan MD; Verena Barajas M.D.; Edmund Kay M.D. COPIES MNE: NEGRITO; ;
== END ==
PROVIDERS: Family Provider Physician Assistant; PCP Student in an Organized Health Care Education/Training Program; Referring Provider Physician Assistant; Visit Provider Physician Assistant
DX: I25.10 Atherosclerotic heart disease of native coronary artery without angina pectoris (principal); I48.0 Paroxysmal atrial fibrillation; R06.00 Dyspnea, unspecified
CPT/HCPCS: 78452; 93017; A9502; J2785

== ENCOUNTER → 2023-09-17 07:19 | Outpatient (CLI) | payer MEDICARE, OTHER, SELFPAY ==
--- NOTE | 2023-09-17 07:20 | DI.ECHO.S_ITS ---
[facility] : : [address] : : [place] : : [id number] : : Phone: [phone] Echocardiogram Report + + :Name: NICANOR RANGEL Study Date: 09/17/2023 Height: 75 in : :[facility] ReadingLocation: Weight: 305 lb : : Gender: Male BSA: 2.6 m2 : :: 1950 Age: 73 yrs BP: 137/104 mmHg: :Reason For Study: CORONARY ARTERY DISEASE : :Ordering Physician: Edmund : :Eliza Performed By: Aleks Rosario : :Referring: Verena Barajas : + + Interpretation Summary The patient was in atrial fibrillation with heart rates between 59-85 bpm during the exam. The ejection fraction is estimated to be 55-60%. Diastolic function could not be accurately assessed due to atrial fibrillation. The left atrium is moderately dilated. The right ventricle is normal in size and function. There is mild mitral regurgitation. There is mild aortic regurgitation. Pulmonary artery pressures cannot be estimated because of the lack of a measurable TR jet velocity. The ascending aorta appears dilated however is normal in size when indexed to body surface area. Compared to the prior study dated 11/10/2021, no significant change. Procedure: A two-dimensional transthoracic echocardiogram with color flow and Doppler was performed. The study quality was technically adequate. Comparison is made with the echocardiogram of 11/10/21. The patient was in atrial fibrillation with heart rates between 59-85 bpm during the exam. Left Ventricle: Left ventricular wall thickness is mildly increased. The left ventricle is normal in size. The ejection fraction is estimated to be 55- 60%. Diastolic function could not be accurately assessed due to atrial fibrillation. Right Ventricle: The right ventricle is normal in size and function. Atria: The left atrium is moderately dilated. The right atrium is normal in size. The interatrial septum grossly appears intact with no obvious evidence for an atrial septal defect. Mitral Valve: The mitral valve is grossly normal. There is no mitral valve stenosis. There is mild mitral regurgitation. The mitral regurgitant jet is eccentrically directed. Aortic Valve: The aortic valve is trileaflet. There is no aortic valve stenosis. There is mild aortic regurgitation. Tricuspid Valve: The tricuspid valve is not well visualized, but is grossly normal. There is no tricuspid stenosis. There is a trace or physiologic amount of tricuspid regurgitation. Pulmonary artery pressures cannot be estimated because of the lack of a measurable TR jet velocity. Pulmonic Valve: The pulmonic valve is not well visualized. There is no pulmonic valvular stenosis. There is no pulmonic valvular regurgitation. Great Vessels: The aortic root is moderately dilated. The ascending aorta is mild-moderately enlarged. The inferior vena cava was not visualized. Pericardium/ Pleura There is no pericardial effusion. There is no pleural effusion. MMode/2D Measurements & Calculations LVIDd: 5.0 cm LVOT diam: 2.5 cm LVIDs: 3.2 cm Ao root diam: 5.2 cm FS: 35.9 % asc Aorta Diam: 4.5 cm IVSd: 1.4 cm Ao Arch Diam (Prox Trans): 3.4 cm LVPWd: 1.4 cm LV zaragoza. diameter/BSA (cm/m^2): 1.9 LV sys. diameter/BSA (cm/m^2): 1.2 LA A2 area: 35.9 cm2 RA long axis: 6.4 cm LA A4 area: 34.0 cm2 RA area: 16.1 cm2 LA length (vol): 7.1 cm RA vol: 34.3 ml LA vol: 144.9 ml RA : 13.1 ml/m2 LA vol index: 55.2 ml/m2 RVD1 (basal): 3.9 cm RVD2 (mid): 3.4 cm TAPSE: 2.0 cm Doppler Measurements & Calculations Ao V2 max: 115.3 cm/sec LVOT Max Russell: 85.1 cm/sec Ao V2 mean: 79.3 cm/sec LV V1 max P.9 mmHg Ao max P.3 mmHg LV V1 VTI: 17.0 cm Ao mean P.8 mmHg TANG(I,D): 4.2 cm2 Ao V2 VTI: 20.6 cm TANG(V,D): 3.8 cm2 sev ratio: 0.83 TANG indexed to BSA (cm^2/m^2): 1.6 MV E max russell: 114.0 cm/sec PA V2 max: 92.9 cm/sec MV A max russell: 20.8 cm/sec PA V2 mean: 67.2 cm/sec MV E/A: 5.5 PA mean P.0 mmHg Med Peak E' Russell: 6.7 cm/sec PA pr(Accel): 37.9 mmHg E/E' med: 16.9 Lat Peak E' Russell: 13.5 cm/sec E/E' lat: 8.5 E/e' average: 12.7 MV dec time: 0.21 sec SV(LVOT): 86.5 ml Reading Physician:02:09 PM
== END ==
PROVIDERS: Family Provider Physician Assistant; PCP Student in an Organized Health Care Education/Training Program; Referring Provider Physician Assistant; Visit Provider Physician Assistant
DX: I08.0 Rheumatic disorders of both mitral and aortic valves (principal); I25.10 Atherosclerotic heart disease of native coronary artery without angina pectoris; I77.810 Thoracic aortic ectasia; I77.89 Other specified disorders of arteries and arterioles
CPT/HCPCS: 93306

== ENCOUNTER 2024-06-21 12:19 | Emergency (ER) | payer MEDICARE, OTHER, SELFPAY ==
[2024-06-21] VITALS (11 sets, daily range): BP systolic 109–155; BP diastolic 70–85; PULSE 80–104; RESP 16–24; TEMP 37.3; O2SAT 91–96; BMI 38.8
--- NOTE | 2024-06-21 12:39 | DI.RAD.S_ITS ---
PROCEDURE: XR CHEST 2V INDICATIONS: cough x 3 weeks TECHNIQUE: 2 views of the chest were acquired. COMPARISON: None. FINDINGS: Surgical changes and devices: None. Lungs and pleura: Lungs are clear. No pleural effusions or pneumothorax. Mediastinum: Mediastinal contours are normal. Heart size is normal. Bones and chest wall: No suspicious bony abnormalities. Soft tissues appear unremarkable. IMPRESSION: No acute cardiopulmonary pathology. Dictated by: Maximo Hernandez M.D. on 06/21/2024 at 13:35 Approved by: Maximo Hernandez M.D. on 06/21/2024 at 13:37
--- NOTE | 2024-06-21 12:50 | EKG_ITS ---
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
[2024-06-21 13:22] LABS: Influenza A - CEPHEID Flu A NEGATIVE (NEGATIVE); Influenza B - CEPHEID Flu B NEGATIVE (NEGATIVE); Respiratory Syncytial Virus Negative (Negative)
[2024-06-21 13:38] LABS: COVID-19 CEPHEID 4-PLEX PCR Negative (Negative)
[2024-06-21] MEDS: FLUORESCEIN 1 MG STRIP EYE-RIGHT (15:17)
[2024-06-21] MEDS: PROPARACAINE 0.5% OPHTH SOL 1 DROPS EYE-RIGHT (15:17)
[2024-06-21] MEDS: ALBUTEROL 2.5 MG/3 ML NEB (ADULT) INH ×2 (15:33→16:17)
--- NOTE | 2024-06-21 15:59 | ED.URI ---
HPI - URI/Sore Throat General Chief Complaint: Upper Respiratory Symptoms Stated Complaint: right eye pain Time Seen by Provider: 06/21/24 13:21 Source: patient Mode of arrival: Ambulatory History of Present Illness HPI Narrative: Patient is a 73-year-old male history of aortic aneurysms hypertension hyperlipidemia presenting today with ongoing cough for the last 3 weeks and most recently right eye drainage and irritation. Reports that his cough started with a sore throat and illness initially got better then started to get worse again. Really here today for it I has not seen draining irritated. Reports that all of his vaccines are up-to-date he does not have any sort of mass. He has no chest pain. No further fever overall appears well. Nursing noted some mild shortness of breath he was given albuterol treatment prior to my evaluation it has improved. He denies wearing any kind of contacts but does wear glasses. Related Data Home Medications Medication Instructions Recorded Confirmed lisinopril 20 1 tab PO DAILY 12/12/17 01/17/22 mg-hydrochlorothiazide 25 mg tablet Resmed Airsense 10 CPAP #1 ea 12/10/18 01/17/22 aspirin 81 mg tablet,delayed 81 mg PO DAILY 12/10/18 01/17/22 release (Adult Low Dose Aspirin) losartan 50 mg-hydrochlorothiazide 1 tab PO DAILY 12/17/20 01/17/22 12.5 mg tablet rosuvastatin 10 mg tablet 10 mg PO DAILY 12/17/20 01/17/22 Previous Rx's Medication Instructions Recorded levofloxacin 250 mg tablet 250 mg PO DAILY #4 tabs 10/29/22 albuterol sulfate 90 mcg/actuation 2 puff inhalation Q4-6H PRN 06/21/24 aerosol inhaler shortness of breath or wheezing #8.5 grams amoxicillin 500 mg capsule 1,000 mg (2 x 500 mg) PO TID 5 06/21/24 days #30 caps azithromycin 250 mg tablet See Rx Instructions PO .COMPLEX #6 06/21/24 tabs polymyxin B sulfate 10,000 1 drp EYE-RIGHT Q4HRWA #10 mL 06/21/24 unit-trimethoprim 1 mg/mL eye drops Allergies Allergy/AdvReac Type Severity Reaction Status Date / Time No Known Drug Allergies Allergy Unverified 01/17/22 11:44 Patient History Medical History (Updated 06/21/24 @ 16:36 by Bibi Quinn DO) Hearing deficit Prostate cancer Depression Allergic rhinitis Hypertension Obesity (BMI 30-39.9) Obstructive sleep apnea of adult Surgical History History of right hip replacement (~2015) Hx of laparoscopic gastric banding (~2014) Social History Smoking Status: Never smoker Smoking Status: Never smoker Exam Initial Vital Signs Initial Vital Signs: Vital Signs Temperature 99.2 F 06/21/24 12:33 Pulse Rate 104 H 06/21/24 12:33 Respiratory Rate 24 06/21/24 12:33 Blood Pressure 155/76 H 06/21/24 12:33 Pulse Oximetry 93 06/21/24 12:33 Oxygen Delivery Method Room Air 06/21/24 12:33 GENERAL: Alert well-appearing 73-year-old male HEENT: Head atraumatic,EOMI, pupils reactive, face symmetric, [moist] mucous membranes EYE: Right eye is stained with fluorescein there is dye uptake no foreign body gross drainage from the eye eye itself is injected and erythematous CARDIOVASCULAR: Regular rate and rhythm without murmurs, rubs or gallops. RESPIRATORY: Breath sounds equal bilaterally, no wheezes rales or rhonchi. ABDOMEN: Soft, nontender. Normoactive bowel sounds all 4 quadrants. No guarding or rebound. EXTREMITIES: Normal range of motion, no clubbing or edema. Neurovascularly intact NEUROLOGICAL: Alert and oriented x4.Normal gait and speech. Cranial nerves II through XII grossly intact. SKIN: Warm, dry, no laceration, no petechiae, no rashes or lesions. Course Orders Ordered: ED Orders 06/21/24 12:39 Chest [XR chest 2V] Stat EKG-12 Lead Stat 06/21/24 12:40 Covid-19 + FLU A/B + RSV - PCR Stat 06/21/24 15:19 RT Consult Eval and Treat NOW Discontinued Medications Albuterol (Albuterol 2.5 Mg/3 Ml Neb (Adult)) 2.5 mg INH NOW ONE Stop: 06/21/24 15:24 Last Admin: 06/21/24 15:33 Dose: 2.5 mg Documented By: SAT Albuterol (Albuterol 2.5 Mg/3 Ml Neb (Adult)) 2.5 mg INH [id number] PRN PRN Reason: Shortness Of Breath Last Admin: 06/21/24 16:17 Dose: 2.5 mg Documented By: EMELIA Erythromycin (Erythromycin Ophth 1 Gm Oint) 1 applic EYE-RIGHT NOW ONE Stop: 06/21/24 16:25 Last Admin: 06/21/24 16:45 Dose: 1 applic Documented By: VIBHA Fluorescein Sodium (Fluorescein 1 Mg Strip) 1 mg EYE-RIGHT NOW ONE Stop: 06/21/24 14:57 Last Admin: 06/21/24 15:17 Dose: 1 mg Documented By: MELITON Proparacaine HCl (Proparacaine 0.5% Ophth Rosamaria) 1 drops EYE-RIGHT NOW ONE Stop: 06/21/24 14:57 Last Admin: 06/21/24 15:17 Dose: 1 drop Documented By: MELITON Vital Signs Vital signs: Vital Signs - 8 hr 06/21/24 12:33 06/21/24 13:25 06/21/24 13:26 Temperature 99.2 F Pulse Rate 104 H 87 88 Respiratory Rate 24 Blood Pressure 155/76 H Pulse Oximetry 93 94 94 Oxygen Delivery Method Room Air 06/21/24 13:26 06/21/24 13:30 06/21/24 13:30 Temperature Pulse Rate 90 Respiratory Rate Blood Pressure 136/85 133/81 Pulse Oximetry 93 Oxygen Delivery Method 06/21/24 14:00 06/21/24 14:00 06/21/24 14:30 Temperature Pulse Rate 80 Respiratory Rate Blood Pressure 125/75 139/75 Pulse Oximetry 93 Oxygen Delivery Method 06/21/24 14:30 06/21/24 15:00 06/21/24 15:00 Temperature Pulse Rate 83 94 H Respiratory Rate Blood Pressure 152/79 H Pulse Oximetry 94 95 Oxygen Delivery Method 06/21/24 15:30 06/21/24 15:31 06/21/24 15:31 Temperature Pulse Rate 92 H 91 H Respiratory Rate Blood Pressure 109/70 Pulse Oximetry 96 95 Oxygen Delivery Method 06/21/24 15:37 06/21/24 16:46 Temperature Pulse Rate 94 H 94 H Respiratory Rate 20 16 Blood Pressure 136/76 Pulse Oximetry 91 95 Oxygen Delivery Method Room Air Room Air MDM - URI/Sore Throat Lab Data Labs: Lab Results 04/12/25 Range/Units 12:40 SARS-CoV-2 (PCR) Negative (Negative) Influenza A (RT-PCR) Flu a negative (NEGATIVE) Influenza B (RT-PCR) Flu b negative (NEGATIVE) RSV (PCR) Negative (Negative) Imaging Data Chest x-ray: Radiologist's Impression: PROCEDURE: XR CHEST 2V INDICATIONS: cough x 3 weeks TECHNIQUE: 2 views of the chest were acquired. COMPARISON: None. FINDINGS: Surgical changes and devices: None. Lungs and pleura: Lungs are clear. No pleural effusions or pneumothorax. Mediastinum: Mediastinal contours are normal. Heart size is normal. Bones and chest wall: No suspicious bony abnormalities. Soft tissues appear unremarkable. IMPRESSION: No acute cardiopulmonary pathology. Dictated by: Maximo Hernandez M.D. on 06/21/2024 at 13:35 Approved by: Maximo Hernandez M.D. on 06/21/2024 at 13:37 ECG Data Attestation: I personally reviewed and interpreted this ECG as follows: Interpretation: Normal sinus rhythm rate 96 AK interval 190 QRS 138 QTC 469 mild artifact noted right bundle-branch block noted no priors to compare MDM Narrative Medical decision making narrative: Patient 73-year-old male presenting today with an ongoing cough for the last couple of weeks. It sounds like it started as upper respiratory symptoms with a sore throat cough which did get better but then got worse again. Really complaining of right eye drainage and pain. He was found to have a corneal abrasion. This is consistent with conjunctivitis. He was no other rash. Reports that vaccines are up-to-date. Records reviewed echocardiogram from 09/17/2023 does not show any evidence of a thoracic aortic aneurysm. Patient reports he just had a scan he was follow-up with Cardiology next week in regards to this. He has no chest pain he actually received an albuterol treatment which helped with his cough significantly. He does not appear fluid overloaded. He has been waiting for a long time in the ED overall wanting to go home. We will start him on antibiotics were ongoing respiratory cough. I do suspect that this is upper respiratory related he has conjunctivitis in his right eye with a corneal abrasion along with the upper respiratory cough. His vitals are stable not hypoxic tachycardic or febrile. Discharge Plan Departure Patient Disposition: Home Clinical Impression: Corneal abscess of right eye, Atypical pneumonia Instructions: Atypical Pneumonia Activity Restrictions/Additional Instructions: *You have been diagnosed with atypical pneumonia corneal abrasion *What to do: At this time your I will start feeling better in a couple of days use antibiotic drops and ointment as needed every 4 hours while awake We will go ahead and start you on antibiotics for your cough as well *Continue to take medications as directed A Z-Zachery take as directed Amoxicillin 1000 mg 3 times a day for 5 days Polytrim eyedrops every 4 hours while awake Albuterol 1-2 puffs every 4 hours if needed for coughing and shortness of *Follow up with your primary care provider in 2-3 days or call [phone] *Return to ER if you should have increasing chest pain shortness of breath or any new, worsening or concerning symptoms Prescriptions: New amoxicillin 500 mg capsule 1,000 mg PO TID 5 Days Qty: 30 0RF azithromycin 250 mg tablet See Rx Instructions PO .COMPLEX Qty: 6 0RF Rx Instructions: For 250 mg dose pack: take 500 mg today (day 1), then 250 mg for 4 days (days 2-5) albuterol sulfate 90 mcg/actuation HFA aerosol inhaler 2 puff INHALATION Q4-6H PRN (Reason: shortness of breath or wheezing) Qty: 8.5 0RF polymyxin B sulf-trimethoprim 10,000 unit- 1 mg/mL drops 1 drp EYE-RIGHT Q4HRWA Qty: 10 0RF No Action levofloxacin 250 mg tablet 250 mg PO DAILY Qty: 4 0RF lisinopril-hydrochlorothiazide 20-25 mg tablet 1 tab PO DAILY rosuvastatin 10 mg tablet 10 mg PO DAILY losartan-hydrochlorothiazide 50-12.5 mg tablet 1 tab PO DAILY (DME) Resmed Airsense 10 CPAP Qty: 1 Dose Instruction: As directed Patient Comments: Pressure: 6-10 cmH2O DME: [facility] Rx Instructions: As directed aspirin [Adult Low Dose Aspirin] 81 mg tablet,delayed release (DR/EC) 81 mg PO DAILY Referrals: Elizabeth Garcia PA-C [Primary Care Provider] - Stand Alone Forms: Patient Portal/API/Survey
[2024-06-21] MEDS: ERYTHROMYCIN OPHTH 1 GM OINT 1 APPLIC EYE-RIGHT (16:45)
== END 2024-06-21 16:47 | disposition home or self-care (01) ==
PROVIDERS: Emergency Provider Emergency Medicine; Family Provider Physician Assistant; PCP Student in an Organized Health Care Education/Training Program
DX: J18.9 Pneumonia, unspecified organism (principal); H16.311 Corneal abscess, right eye; I45.10 Unspecified right bundle-branch block
CPT/HCPCS: 0241U; 71046; 93005; 94640; 99283; 99284; J7613

== ENCOUNTER 2025-03-10 11:52 | Emergency (ER) | payer MEDICARE, OTHER, SELFPAY ==
[2025-03-10 11:55] VITALS: BP 130/78; PULSE 68; RESP 22; TEMP 36.6; O2SAT 92; BMI 39.9
--- OUTSIDE RECORDS SUMMARY | 2025-03-10 11:55 | XMS_ITS | Encounter Summary ---
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 [address] Social History Tobacco Use Types Packs/Day Years Used Date Smoking Tobacco: Never Smokeless Tobacco: Never Alcohol Use Standard Drinks/Week Comments Yes 0 (1 standard drink = 0.6 oz pur e alcohol) Sex and Gender Information Value Date Recorded Sex Assigned at Not on file Legal Sex Male 7:44 PM PDT Gender Identity Not on file Sexual Orientation Not on file documented as of this encounter Plan of Treatment Upcoming Encounters Date Type Department Care Team (Late st Contact Info) Description 03/31/2025 9:00 AM PST Lab [facility] [address] [place] [address], [facility] [address] [place] [address] 04/02/2025 10:00 AM PST Office Visit [facility] [address], [facility] [address] [place] [address] Debora Garzon ARNP [address] [place] [phone] Haseeb Loaiza MD [address] [address] [place] [phone] 04/03/2025 9:00 AM PST Device Monitoring [facility] [place] [address] [place] [address], [address] [place] [phone] 05/06/2025 8:30 AM PST Office Visit [facility] [address] [place], [place] [id number] Jose Hannah MD [address] [place] [address] [address] [place], [place] [id number] documented as of this encounter Visit Diagnoses Not on filedocumented in this encounter Care Teams [employer] Agriculture Technician Relationship Specialty Start Date End Date Temo Herrera MD PCP - General Internal Medicine 08/12/24 documented as of this encounter
--- NOTE | 2025-03-10 11:57 | DI.CT.S_ITS ---
PROCEDURE: CT HEAD/BRAIN WO CON INDICATIONS: fall on thinners TECHNIQUE: Noncontrast 4.5 mm thick angled axial sections acquired from the foramen magnum to the vertex, with coronal and sagittal reformats. For radiation dose reduction, the following was used: automated exposure control, adjustment of mA and/or kV according to patient size. COMPARISON: Same-day CT facial bones 03/10/2025. FINDINGS: Image quality: Diagnostic. CSF spaces: Basal cisterns are patent. No extra-axial fluid collections. The ventricles are symmetric in size and shape. Brain: No intracranial bleeds or mass effect. There is cerebral volume loss, with resultant ventricular and sulcal prominence. There are periventricular and deep white matter chronic small vessel ischemic changes. There is intracranial internal carotid artery atherosclerosis. Skull and face: No displaced calvarial fracture. Please see separately dictated CT facial bone Sinuses: Visualized sinuses are clear. Well pneumatized left mastoid air cells. Postsurgical changes versus congenital defect of the right mastoid air cells. IMPRESSION: No acute intracranial pathology. Please see separately dictated CT facial bones for description facial fractures. Approved by: Shantel Pineda M.D.,Ph.D. on 03/10/2025 at 12:31
--- NOTE | 2025-03-10 11:59 | DI.CT.S_ITS ---
PROCEDURE: CT CERVICAL SPINE WO CON INDICATIONS: fall TECHNIQUE: Noncontrast 3 mm thick sections acquired from the skull base to the T4 level. Sagittal and coronal reformats were then constructed. For radiation dose reduction, the following was used: automated exposure control, adjustment of mA and/or kV according to patient size. COMPARISON: None. FINDINGS: Image quality: Diagnostic. Bones: No fractures or dislocations. Visualized superior ribs are intact. Multilevel degenerative changes. Soft tissues: Prevertebral soft tissues are normal in thickness. No paravertebral hematomas. No apical pneumothoraces. IMPRESSION: No acute displaced fracture or traumatic subluxation. Approved by: Shantel Pineda M.D.,Ph.D. on 03/10/2025 at 12:32
--- NOTE | 2025-03-10 11:59 | DI.CT.S_ITS ---
PROCEDURE: CT FACIAL BONES WO CON INDICATIONS: fall on thinners TECHNIQUE: Noncontrast 2.5 mm thick axial images acquired from the mandible through the frontal sinuses, with coronal and sagittal reformatting. For radiation dose reduction, the following was used: automated exposure control, adjustment of mA and/or kV according to patient size. COMPARISON: None. FINDINGS: Maxillofacial Bones: Comminuted nasal bone fracture with associated soft tissue swelling and soft tissue air. There is a fracture fragment very close to the skin image 2/80. Remainder of the osseous structures are intact. Nasal septal spurring to the left Mandible: The mandible is intact without fracture. Unremarkable temporomandibular articulation. Dentition: Large radicular cyst involving the left maxillary 1st molar extends and erupts into the left maxillary sinus. Similar radicular cyst on the right Soft tissues: No maxillofacial soft tissue swelling. No radiopaque foreign bodies. Orbits: The osseous orbits, globes and ocular muscles unremarkable. Sinuses and Mastoid: Minimal maxillary mucosal thickening along the floors of both sinuses. IMPRESSION: Comminuted nasal bone fracture. Approved by: Eber Dixon M.D. on 03/10/2025 at 11:35
--- NOTE | 2025-03-10 12:07 | DI.RAD.S_ITS ---
PROCEDURE: XR CHEST 1V INDICATIONS: Chest Pain TECHNIQUE: One view of the chest was acquired. COMPARISON: [facility], CR, XR CHEST 2V, 06/21/2024, 12:51. FINDINGS AND IMPRESSION: No airspace consolidation or pleural effusion on this single view study. Low lung volumes, limiting evaluation. Borderline cardiomegaly as before. Unchanged prominent right mediastinal contour. Degenerative osseous findings Dictated by: Jaden Contreras M.D. on 03/10/2025 at 12:36 Approved by: Jaden Contreras M.D. on 03/10/2025 at 12:37
--- NOTE | 2025-03-10 12:17 | EKG_ITS ---
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
[2025-03-10 12:30] LABS: Add Manual Diff / Slide Review NO; Hematocrit 44.9 % (41-53); Hemoglobin 14.8 g/dL (13.5-17.5); Lymphocytes Absolute Auto 1200 /uL (1100-4500); Mean Corpuscular HGB Conc 33.0 % (30-36); Mean Corpuscular Hemoglobin 29.1 PG (26-34); Mean Corpuscular Volume 88.1 fL (80-100); Platelet Count 141 X10^3/uL (150-400)
[2025-03-10 12:49] LABS: INR 1.5 (0.9-1.3); Prothrombin Time 17.0 SECONDS (9.4-12.5)
[2025-03-10 12:52] LABS: PTT Partial Thromboplastin Tim 32 SECONDS (25.1-36.5)
[2025-03-10 12:54] LABS: Alanine Aminotransferase 19 IU/L (<50); Albumin 4.3 g/dL (3.5-5.0); Albumin Globulin Ratio 1.6 (1.0-2.8); Alkaline Phosphatase 69 U/L (38-126); Blood Urea Nitrogen 33 mg/dL (9-20); Calcium 9.5 mg/dL (8.4-10.2); Carbon Dioxide 16 mmol/L (22-32); Chloride 112 mmol/L (98-107); Creatine Kinase 44 U/L (55-170); Estimated Glomerular Filt Rate 59 mL/min (>60); Globulin 2.7 g/dL (1.7-4.1); Glucose 117 mg/dL (70-99); HEMOLYSIS 35 (0-50); Lipase 71 U/L (23-300); Magnesium 1.7 mg/dL (1.6-2.3); Potassium 4.1 mmol/L (3.4-5.1); Sodium 139 mmol/L (137-145); Total Protein 7.0 g/dL (6.3-8.2)
[2025-03-10 13:05] LABS: NT-proBNP (BNP-Adult 18+) 114 pg/mL (<450); Troponin I < 0.012 ng/mL (0.01-0.034)
--- NOTE | 2025-03-10 13:07 | ED_ITS ---
HPI - Fall General Chief Complaint: Trauma Stated Complaint: Fall . Busted lip, top of nose , on blood thinners Time Seen by Provider: 03/10/25 12:47 Source: patient and family Mode of arrival: Family Vehicle History of Present Illness HPI Narrative: Patient is a 74-year-old male history of atrial fibrillation, not on anticoagulation presenting today with a fall. He says he recently had an ablation with Cardiology today he reports he was walking he says he got very short of breath and fell down. He did hit his nose no loss of consciousness no nausea no vomiting. Having some nose pain and bleeding. Denies any other injury. No chest pain or shortness of breath at this time. Related Data Home Medications ?Medication ?Instructions ?Recorded ?Confirmed lisinopril 20 1 tab PO DAILY 12/12/1710/31 mg-hydrochlorothiazide 25 mg tablet Resmed Airsense 10 CPAP #1 ea 12/10/18 01/17/22 aspirin 81 mg tablet,delayed 81 mg PO DAILY 12/10/18 1 03/19/21 release (Adult Low Dose Aspirin) losartan 50 mg-hydrochlorothiazide 1 tab PO DAILY 10/3001/17/22 12.5 mg tablet rosuvastatin 10 mg tablet 10 mg PO DAILY 12/17/2010/31 Previous Rx's ?Medication ?Instructions ?Recorded levofloxacin 250 mg tablet 250 mg PO DAILY #4 tabs albuterol sulfate 90 mcg/actuation 2 puff inhalation Q 4-6H PRN 06/21/24 aerosol inhaler shortness of breath or wheez ing #8.5 grams azithromycin 250 mg tablet See Rx Instructions PO .COM PLEX #6 06/21/24 tabs polymyxin B sulfate 10,000 1 drp EYE-RIGHT Q4HRWA #10 mL 06/21/24 unit-trimethoprim 1 mg/mL eye drops cephalexin 500 mg capsule 500 mg PO BID 7 days #14 cap s 03/10/25 Allergies Allergy/AdvReac Type Severity Reaction Status Date / Time No Known Drug Allergies Allergy Verified 03/10/25 12:02 Patient History Medical History (Updated 03/10/25 @ 15:38 by Bibi Quinn DO) Hearing deficit Prostate cancer Depression Allergic rhinitis Hypertension Obesity (BMI 30-39.9) Obstructive sleep apnea of adult Surgical History History of right hip replacement (~2015) Hx of laparoscopic gastric banding (~2014) Social History Smoking Status: Never smoker Smoking Status: Never smoker Exam Initial Vital Signs Initial Vital Signs: Vital Signs Temperature 97.8 F 03/10/25 11:55 Pulse Rate 68 03/10/25 11:55 Respiratory Rate 22 03/10/25 11:55 Blood Pressure 130/78 03/10/25 11:55 Pulse Oximetry 92 03/10/25 11:55 Oxygen Delivery Method Room Air 03/10/25 11:55 GENERAL: Alert 74-year-old male obvious facial injury HEENT: Head atraumatic,EOMI, nose stellate laceration 2 cm, blood clots in both nostrils CARDIOVASCULAR: Regular rate and rhythm without murmurs, rubs or gallops. RESPIRATORY: Breath sounds equal bilaterally, no wheezes rales or rhonchi. ABDOMEN: Soft, nontender. Normoactive bowel sounds all 4 quadrants. No guarding or rebound. EXTREMITIES: Normal range of motion, no clubbing or edema. Neurovascularly intact NEUROLOGICAL: Alert and oriented x4.Normal gait and speech. Cranial nerves II through XII grossly intact. Good [id number]-cwbs, good xaqv-[id number]-ilrf, strength equal bilaterally, no dysarthria or aphasia, sensation in tact to soft touch bilaterally, no visual changes, no facial droop SKIN: Warm, dry, no laceration, no petechiae, no rashes or lesions. Procedures Laceration Repair Laceration 1: Site: face (nose) Size (cm): 2 Description: stellate Depth: simple, single layer Local Anesthetic: lidocaine 1% Amount of anesthesia used (mL): 2 Pre-repair: wound explored, irrigated extensively and deep structures intact Skin layer closed with: nylon Skin layer suture size: 5-0 Number of sutures: 3 Course Orders Ordered: ED Orders 03/10/25 11:57 CT head/brain wo con Stat 03/10/25 11:59 CT cervical spine wo con Stat CT facial bones wo con Stat 03/10/25 12:07 XR chest 1V Stat EKG-12 Lead Stat 03/10/25 12:15 Complete Blood Count AUTO DIFF Stat Comprehensive Metabolic Panel Stat Lactate (Lactic Acid) Stat Lipase Stat Magnesium Stat NT-proBNP (BNP-Adult 18+) Stat PTT Partial Thromboplastin [place] Stat Prothrombin Time INR Stat Troponin & CK Cardiac Panel Stat Discontinued Medications Aspirin (Aspirin 81 Mg Chew Tab) 324 mg PO NOW ONE Stop: 03/10/25 12:08 Diphtheria/Tetanus/Acell Pertussis (Tet,Diph,Pertuss(Acell),Vac/Pf 0.5 Ml Syringe) 0.5 ml IM .ONCE ONE Stop: 03/10/25 12:07 Sodium Chloride (Normal Saline 0.9%) 1,000 mls @ 1,000 mls/hr IV BOLUS ONE Stop: 03/10/25 15:28 Vital Signs Vital signs: Vital Signs - 8 hr 03/10/25 11:55 Temperature 97.8 F Pulse Rate 68 Respiratory Rate 22 Blood Pressure 130/78 Pulse Oximetry 92 Oxygen Delivery Method Room Air MDM - Fall Lab Data 03/10/25 12:15 03/10/25 12:15 Labs: Lab Results 03/10/25 Range/Units 12:15 WBC 6.9 (4.5-11.0) X10^3/uL RBC 5.10 (4.5-5.9) X10^6/uL Hgb 14.8 (13.5-17.5) g/dL Hct 44.9 (41-53) % MCV 88.1 (80-100) fL MCH 29.1 (26-34) PG MCHC 33.0 (30-36) % RDW 15.7 H (11.6-14.8) % Plt Count 141 L (150-400) X10^3/uL Neut % (Auto) 67.7 (50-75) % Lymph % (Auto) 18.2 L (25-40) % [place] % (Auto) 11.0 (3-14) % Eos % (Auto) 2.4 (2-4) % Baso % (Auto) 0.7 (0-2) % Neut # (Auto) 4700 (0290-0267) /uL Lymph # (Auto) 1200 (4404-1638) /uL [place] # (Auto) 800 (0-900) /uL Eos # (Auto) 200 (0-450) /uL Baso # (Auto) 0 (0-100) /uL PT 17.0 H (9.4-12.5) SECONDS INR 1.5 H (0.9-1.3) APTT 32 (25.1-36.5) SECONDS Sodium 139 (137-145) mmol/L Potassium 4.1 (3.4-5.1) mmol/L Chloride 112 H (98-107) mmol/L Carbon Dioxide 16 L (22-32) mmol/L BUN 33 H (9-20) mg/dL Creatinine 1.27 H (0.66-1.25) mg/dL Estimated GFR 59 L (>60) mL/min BUN/Creatinine Ratio 26.0 H (6-22) Glucose 117 H (70-99) mg/dL Lactate 1.6 (0.7-2.1) mmol/L Calcium 9.5 (8.4-10.2) mg/dL Magnesium 1.7 (1.6-2.3) mg/dL Total Bilirubin 0.7 (0.2-1.3) mg/dL AST 27 (17-59) IU/L ALT 19 (<50) IU/L Alkaline Phosphatase 69 (38-126) U/L Total Creatine Kinase 44 L (55-170) U/L Troponin I < 0.012 (0.01-0.034) ng/mL NT-Pro-B Natriuret Pep 114 (<450) pg/mL Total Protein 7.0 (6.3-8.2) g/dL Albumin 4.3 (3.5-5.0) g/dL Globulin 2.7 (1.7-4.1) g/dL Albumin/Globulin Ratio 1.6 (1.0-2.8) Lipase 71 (23-300) U/L Imaging Data CT scan - head: Radiologist's Impression: PROCEDURE: CT HEAD/BRAIN WO CON INDICATIONS: fall on thinners TECHNIQUE: Noncontrast 4.5 mm thick angled axial sections acquired from the foramen magnum to the vertex, with coronal and sagittal reformats. For radiation dose reduction, the following was used: automated exposure control, adjustment of mA and/or kV according to patient size. COMPARISON: Same-day CT facial bones 03/10/2025. FINDINGS: Image quality: Diagnostic. CSF spaces: Basal cisterns are patent. No extra-axial fluid collections. The ventricles are symmetric in size and shape. Brain: No intracranial bleeds or mass effect. There is cerebral volume loss, with resultant ventricular and sulcal prominence. There are periventricular and deep white matter chronic small vessel ischemic changes. There is intracranial internal carotid artery atherosclerosis. Skull and face: No displaced calvarial fracture. Please see separately dictated CT facial bone Sinuses: Visualized sinuses are clear. Well pneumatized left mastoid air cells. Postsurgical changes versus congenital defect of the right mastoid air cells. IMPRESSION: No acute intracranial pathology. Please see separately dictated CT facial bones for description facial fractures. Approved by: Shantel Pineda M.D.,Ph.D. on 03/10/2025 at 12:31 CT - cervical spine: Radiologist's Impression: PROCEDURE: CT CERVICAL SPINE WO CON INDICATIONS: fall TECHNIQUE: Noncontrast 3 mm thick sections acquired from the skull base to the T4 level. Sagittal and coronal reformats were then constructed. For radiation dose reduction, the following was used: automated exposure control, adjustment of mA and/or kV according to patient size. COMPARISON: None. FINDINGS: Image quality: Diagnostic. Bones: No fractures or dislocations. Visualized superior ribs are intact. Multilevel degenerative changes. Soft tissues: Prevertebral soft tissues are normal in thickness. No paravertebral hematomas. No apical pneumothoraces. IMPRESSION: No acute displaced fracture or traumatic subluxation. Approved by: Shantel Pineda M.D.,Ph.D. on 03/10/2025 at 12:32 ct face: Radiologist's Impression: PROCEDURE: CT FACIAL BONES WO CON INDICATIONS: fall on thinners TECHNIQUE: Noncontrast 2.5 mm thick axial images acquired from the mandible through the frontal sinuses, with coronal and sagittal reformatting. For radiation dose reduction, the following was used: automated exposure control, adjustment of mA and/or kV according to patient size. COMPARISON: None. FINDINGS: Maxillofacial Bones: Comminuted nasal bone fracture with associated soft tissue swelling and soft tissue air. There is a fracture fragment very close to the skin image 2/80. Remainder of the osseous structures are intact. Nasal septal spurring to the left Mandible: The mandible is intact without fracture. Unremarkable temporomandibular articulation. Dentition: Large radicular cyst involving the left maxillary 1st molar extends and erupts into the left maxillary sinus. Similar radicular cyst on the right Soft tissues: No maxillofacial soft tissue swelling. No radiopaque foreign bodies. Orbits: The osseous orbits, globes and ocular muscles unremarkable. Sinuses and Mastoid: Minimal maxillary mucosal thickening along the floors of both sinuses. IMPRESSION: Comminuted nasal bone fracture. Approved by: Eber Dxion M.D. on 03/10/2025 at 11:35 Chest x-ray: Radiologist's Impression: PROCEDURE: XR CHEST 1V INDICATIONS: Chest Pain TECHNIQUE: One view of the chest was acquired. COMPARISON: [facility], , XR CHEST 2V, 06/21/2024, 12:51. FINDINGS AND IMPRESSION: No airspace consolidation or pleural effusion on this single view study. Low lung volumes, limiting evaluation. Borderline cardiomegaly as before. Unchanged prominent right mediastinal contour. Degenerative osseous findings Dictated by: Jaden Contreras M.D. on 03/10/2025 at 12:36 ECG Data Attestation: I personally reviewed and interpreted this ECG as follows: Prior ECG tracings: available for review Interpretation: Sinus rhythm rate 65 NH interval 218 QRS 146 QTC 443 right bundle-branch block noted similar to prior MDM Narrative Medical decision making narrative: MDM CC: Fall shortness of Complicating co-morbidities: Atrial fibrillation with ablation only aspirin Data collected from: Patient Medical records reviewed: Minimal records Differential considered: Electrolyte abnormality vasovagal anemia cardiac arrhythmia neurogenic Exam documented above, pertinent findings include: Alert 74-year-old male has a obvious laceration to the nose neck is supple neurovascularly intact Lab Test results independently reviewed as above. Pertinent findings: CBC no leukocytosis or anemia CMP sodium 139 potassium 4.1 chloride 112 bicarb 16 BUN 33 creatinine 1.27 slight ROCCO glucose is 117 Lactate 1.6 Troponin negative Independently reviewed EKG as above Sinus rhythm with right bundle-branch block similar to prior Imaging studies independently reviewed: Head CT no intracranial hemorrhage Cervical spine CT no fracture Facial CT comminuted nasal bone fracture Consultations: 1530 Dr. Lowry, cardiology updated patient's symptoms test results has reviewed records. Will help to expedite cardiac monitoring as an outpatient. No change in meds at this time Treatments: suture, fluids were ordered but apparently not home. Patient is asymptomatic and ambulated without difficulty Re-evaluations: Patient ambulated to the restroom without any kind of difficulty Discussion: Patient is 74-year-old male presenting today with a fall. He thinks it maybe his AFib. He recently had ablation but whenever he has had his AFib he said some more symptoms. He did fall he has a nasal bone fracture in the laceration to the bridge of his nose. The laceration was easily repaired. Blood work does show some mild dehydration with slightly ROCCO. He is given a L of fluids, overall feeling better. Correlate cardiology was consulted and will contact patient and help with outpatient follow-up. Discharge Plan Departure Patient Disposition: Home Clinical Impression: Fracture of nasal bones, Laceration, Syncope Instructions: DI for Nose Fracture, DI for Laceration Repair Activity Restrictions/Additional Instructions: *You have been diagnosed with nasal bone fracture, laceration and syncope *What to do: Have sutures removed in about 7 days. You may shower and bathe normally. Keep area clean and dry with soap and water. *Continue to take medications as directed Tylenol 650 mg every 4-6 hours if needed for pain Keflex 500 mg twice a day *Follow up with your primary care provider in 2-3 days or call [phone] Cardiology will contact you for further evaluation and likely monitoring *Return to ER if you should have recurrent episode of passing out chest pain palpitations dizziness lightheadedness increasing pain [or] any new, worsening or concerning symptoms Prescriptions: New cephalexin 500 mg capsule 500 mg PO BID 7 Days Qty: 14 0RF No Action levofloxacin 250 mg tablet 250 mg PO DAILY Qty: 4 0RF azithromycin 250 mg tablet See Rx Instructions PO .COMPLEX Qty: 6 0RF Rx Instructions: For 250 mg dose pack: take 500 mg today (day 1), then 250 mg for 4 days (days 2-5) albuterol sulfate 90 mcg/actuation HFA aerosol inhaler 2 puff INHALATION Q4-6H PRN (Reason: shortness of breath or wheezing) Qty: 8.5 0RF polymyxin B sulf-trimethoprim 10,000 unit- 1 mg/mL drops 1 drp EYE-RIGHT Q4HRWA Qty: 10 0RF lisinopril-hydrochlorothiazide 20-25 mg tablet 1 tab PO DAILY rosuvastatin 10 mg tablet 10 mg PO DAILY losartan-hydrochlorothiazide 50-12.5 mg tablet 1 tab PO DAILY (DME) Resmed Airsense 10 CPAP Qty: 1 Dose Instruction: As directed Patient Comments: Pressure: 6-10 cmH2O DME: [facility] Rx Instructions: As directed aspirin [Adult Low Dose Aspirin] 81 mg tablet,delayed release (DR/EC) 81 mg PO DAILY Referrals: Elizabeth Garcia PA-C [Primary Care Provider, Medical] Stand Alone Forms: Patient Portal/API
[2025-03-10 14:42] LABS: Lactate (Lactic Acid) 1.6 mmol/L (0.7-2.1)
[2025-03-10] MEDS: TET,DIPH,PERTUSS(ACELL),VAC/PF 0.5 ML SYRINGE IM (15:59)
[2025-03-10 16:00] VITALS: BP 135/98; PULSE 75; RESP 20; O2SAT 98
[2025-03-10] MEDS: OXYMETAZOLINE NASAL SPRAY 30 ML 2 SPRAYS NASAL (16:13)
== END 2025-03-10 16:20 | disposition home or self-care (01) ==
PROVIDERS: Emergency Provider Emergency Medicine; Family Provider Physician Assistant; PCP Student in an Organized Health Care Education/Training Program
DX: S01.21XA Laceration without foreign body of nose, initial encounter (principal); S02.2XXA Fracture of nasal bones, initial encounter for closed fracture; R55 Syncope and collapse; R04.0 Epistaxis; R06.02 Shortness of breath; Z23 Encounter for immunization; W19.XXXA Unspecified fall, initial encounter
CPT/HCPCS: 12011; 70450; 70486; 71045; 72125; 80053; 82550; 83605; 83690; 83735; 83880; 84484; 85025; 85610; 85730; 90471; 93005; 96372; 99284; 90715